=== PATIENT | male | born 1965 | race African-American/Black ===

== ENCOUNTER 2024-06-13 07:53 | Emergency (ER) | payer MEDICAID ==
[~2024-06-13] VITALS: Ht 193 cm; Wt 159.0 kg
[2024-06-13 08:00] VITALS: BP 157/101; PULSE 81; RESP 17; TEMP 36.9; O2SAT 99
[2024-06-13] MEDS: MECLIZINE 25MG TABLET PO ONE (08:30)
[2024-06-13 08:44] LABS: BASOPHILS % 0.6 % (0.0-2.0); EOSINOPHILS % 4.4 % (0.0-5.0); HEMATOCRIT. 43.4 % (42.0-52.0); HEMOGLOBIN. 14.5 g/dL (14.0-18.0); LYMPHOCYTES % 31.8 % (20.0-50.0); MEAN CORPUSCULAR HEMOGLOBIN 30.1 pg (28.0-32.0); MEAN CORPUSCULAR HGB CONC 33.4 g/dL (31.0-37.0); MEAN CORPUSCULAR VOLUME 90.1 fL (80.0-94.0); MEAN PLATELET VOLUME 8.8 fl (7.4-10.4); MONOCYTES % 11.7 % (2.0-8.0); NEUTROPHILS % 51.5 % (40.0-76.0); PLATELET 209 x1000/uL (130-400); RED BLOOD CELL COUNT 4.81 mill/uL (4.7-6.1); RED CELL DISTRIBUTION WIDTH 14.2 % (11.6-14.6); WHITE BLOOD COUNT 4.2 x1000/uL (4.5-11.0)
[2024-06-13 08:54] LABS: CHLORIDE 109 mEq/L (98-107); POTASSIUM 3.7 mEq/L (3.5-5.1); SODIUM 141 mEq/L (136-145)
[2024-06-13 08:55] LABS: CARBON DIOXIDE 28 mEq/L (21-32)
[2024-06-13 08:56] LABS: CALCIUM 9.4 mg/dL (8.7-10.4)
[2024-06-13 09:00] LABS: CREATININE 1.1 mg/dL (0.6-1.3); GLUCOSE 115 mg/dL (70-105); UREA NITROGEN BLOOD 13 mg/dL (9-23)
[2024-06-13 09:13] LABS: TROPONIN I HIGH SENSITIVITY < 4 ng/L (3.0-53)
[2024-06-13] MEDS ORDERED: MECL-299 MT (12:12)
== END 2024-06-13 12:36 | disposition home or self-care (01) ==
LOC: ER 07:53
DX: R42 Dizziness and giddiness (principal); Z68.41 Body mass index [BMI] 40.0-44.9, adult
CPT/HCPCS: 99285; 70450; 71045; 80048; 85025; 84484; 36415; 93005; J8597